=== PATIENT | male | born 1970 | race Hispanic/Latino ===

== ENCOUNTER 2019-03-13 00:19 | Emergency (ER) | payer BC, MEDICAID ==
[2019-03-13] MEDS ORDERED: MORPHINE 4 MG/1 ML INJ IV ONE (01:58)
--- NOTE | 2019-03-13 02:07 | Emergency Department Report ---
HPI - General Chief Complaint: Abdominal Pain Time Seen by Provider: 03/13/19 01:46 - HPI HPI: 48-year-old male presents to the emergency department with a complaint of left flank pain, nausea, hematuria, and increased urinary frequency and urgen cy. The patient has a known history of kidney stones. He says that he has been dealing with a left-sided kidney stone for the past 6 months. He says that it will go down, causing blockage, and then go back up into the kidneys. His symptoms started on Wednesday, 2 days ago, and have been going on since. He also has a past medical history of CHF, COPD, diabetes, sleep apnea, coronary artery disease and chronic back pain. When the symptoms intensified this afternoon, the patient contacted his urologist Dr. Cespedes, and they were told to come to [facility] for further evaluation. ED Past Medical Hx - Past Medical History Previous Medical History?: Yes Hx Congestive Heart Failure: Yes Hx Diabetes: Yes Hx Kidney Stones: Yes Hx Asthma: Yes Hx COPD: Yes Additional medical history: Sleep Apnea, CAD, Chronic Back Pain, Lung disease, Morbid Obesity. - Surgical History Past Surgical History?: Yes Hx Coronary Stent: Yes Additional Surgical History: Bilateral ankle. - Social History Smoking Status: Never Smoker Substance Use Type: None - Medications Home Medications: Home Medications Medication Instructions Recorded Confirmed Last Taken Type Ciprofloxacin HCl [Ciprofloxacin 500 mg PO Q12HR #10 tab 03/13/19 Unknown Rx TAB] Metoclopramide [Reglan] 10 mg PO TID PRN #20 tab 03/13/19 Unknown Rx ED Review of Systems ROS: Stated complaint: KIDNEY BLOCK,NAUSEA, PAIN Other details as noted in HPI Comment: All other systems reviewed and negative Constitutional: denies: chills, fever Eyes: denies: eye pain, vision change ENT: denies: ear pain, throat pain Respiratory: denies: cough, shortness of breath Cardiovascular: denies: chest pain, palpitations Gastrointestinal: abdominal pain, nausea Genitourinary: urgency, frequency, hematuria Musculoskeletal: back pain. denies: arthralgia Skin: denies: rash, lesions Neurological: denies: headache, weakness Physical Exam - Physical Exam Vital Signs: Vital Signs 03/13/19 00:32 Temperature 98.8 F Pulse Rate 109 H Respiratory 18 Rate Blood Pressure 194/121 O2 Sat by Pulse 96 Oximetry Physical Exam: GENERAL: The patient is well-developed well-nourished. HENT: Normocephalic. Atraumatic. Patient has moist mucous membranes. EYES: Extraocular motions are intact. NECK: Supple. Trachea is midline. CHEST/LUNGS: Clear to auscultation. There is no respiratory distress noted. HEART/CARDIOVASCULAR: Regular. There is mild tachycardia. There is no murmur. ABDOMEN: Abdomen is soft. Unable to reproduce the left-sided abdominal pain or flank pain to palpation. No guarding. Patient has normal bowel sounds. Obese habitus. SKIN: Skin is warm and dry. NEURO: The patient is awake, alert, and oriented. The patient is cooperative. The patient has no focal neurologic deficits. Normal speech. MUSCULOSKELETAL: There is no tenderness or deformity. There is no limitation range of motion. There is no evidence of acute injury. ED Course Vital Signs 03/13/19 00:32 Temperature 98.8 F Pulse Rate 109 H Respiratory 18 Rate Blood Pressure 194/121 O2 Sat by Pulse 96 Oximetry - Consultations Consultation #1: 03/13/19 05:11 I spoke to the patient's urologist, Dr. Oliva, regarding the patient's ED course and the CT findings of obstructing 4 mm stone with mild to moderate hydronephrosis and perinephric stranding. Given the size of the stone and its position in the distal ureter, Dr. Oliva felt that the patient may be able to be discharged home with outpatient follow-up. He recommended antibiotics and pain control and will see the patient in the office in a few days. ED Medical Decision Making - Lab Data Result diagrams: 03/13/19 01:08 03/13/19 01:08 - Radiology Data Radiology results: report reviewed CT ABDOMEN AND PELVIS WITHOUT CONTRAST INDICATION: Left flank pain. History of kidney stones. TECHNICAL: Multiple axial CT images of the abdomen and pelvis were acquired without intravenous contrast. Sagittal and coronal reformats were obtained. All CTs at this facility utilize dose reduction techniques including automated exposure control, iterative reconstruction and weight based dosing when appropriate to reduce patient radiation dose to as low as reasonable achievable. COMPARISON: None FINDINGS: Limited imaging of the bilateral lung bases demonstrates no acute abnormality. Abdomen: There is moderately decreased attenuation of the hepatic parenchyma. Within the limitations of today's noncontrast study, the gallbladder, spleen, pancreas, bilateral adrenal glands and right kidney show no evidence of acute abnormality. There is mild to moderate left-sided hydronephrosis and perinephric stranding. There is mild left hydroureter. There is no evidence of bowel obstruction. Pelvis: There is an obstructing 4 mm stone in the distal left ureter. The urinary bladder appears normal. There is no free fluid within the pelvis. Bones and Soft Tissues: Evaluation of bony structures demonstrates previous posterior surgical stabilization of the lumbosacral spine. IMPRESSION: 1. Obstructing 4 mm stone within the distal left ureter causing mild to moderate hydronephrosis and perinephric stranding. 2. Probable mild hepatic steatosis. - Medical Decision Making This patient presents with some left-sided abdominal and flank pain, hematuria, nausea without vomiting and a history of nephrolithiasis. Patient's labs were mostly unremarkable. There was some mild hyperglycemia without signs of diabetic ketoacidosis. Urinalysis does show hematuria without signs of a urinary tract infection. Patient has a leukocytosis of 17,000. CT scan of the abdomen and pelvis without contrast was completed that shows a 4 mm obstructing distal left ureter stone with [id number] hydronephrosis and perinephric stranding. His vital signs stable throughout his ED course including being afebrile. The patient was given multiple doses of pain medication and antiemetics with some improvement. I spoke with the patient's urologist who has recommended outpatient follow-up. Patient was given a dose of Flomax and antibiotics here as well. He has narcotic pain medication and Flomax at home to take and has received a prescription for some antibiotics. He has been instructed to follow up with urology in the next few days and to return to the emergency Department with any worsening of his symptoms or any acute distress. - Differential Diagnosis nephrolithiasis, pyelonephritis, UTI, colitis Critical Care Time: No Critical care attestation.: If time is entered above; I have spent that time in minutes in the direct care of this critically ill patient, excluding procedure time. ED Disposition Clinical Impression: Flank pain, Nephrolithiasis Hematuria Qualifiers: Hematuria type: unspecified type Qualified Code(s): R31.9 - Hematuria, unspecified Disposition: DC-01 TO HOME OR SELFCARE Is pt being admited?: No Condition: Stable Instructions: Kidney Stones (ED), How to Strain Your Urine (ED), Flank Pain (ED) Additional Instructions: Please follow-up with Dr. Oliva in the next few days. Take your Flomax and pain medication. Take the antibiotics as prescribed. Return to the emergency Department with any worsening of your symptoms or any acute distress. Prescriptions: Ciprofloxacin HCl [Ciprofloxacin TAB] 500 mg PO Q12HR #10 tab Metoclopramide [Reglan] 10 mg PO TID PRN #20 tab PRN Reason: Nausea Referrals: HILARY OLIVA MD [Staff Physician] - 2-3 Days Time of Disposition: 04:46
[2019-03-13 02:11] LABS: Basophils # (Auto) 0.1 K/mm3 (0.0-0.1); Basophils % (Auto) 0.4 % (0.0-1.8); Eosinophils # (Auto) 0.1 K/mm3 (0.0-0.4); Eosinophils % (Auto) 0.8 % (0.0-4.3); Hematocrit 41.4 % (35.5-45.6); Hemoglobin 13.6 gm/dl (11.8-15.2); Lymphocytes # (Auto) 1.8 K/mm3 (1.2-5.4); Lymphocytes % (Auto) 10.7 % (13.4-35.0); Mean Corpuscular HGB Conc 33 % (32-34); Mean Corpuscular Volume 88 fl (84-94); Monocytes # (Auto) 1.5 K/mm3 (0.0-0.8); Monocytes % (Auto) 8.7 % (0.0-7.3); Platelet Count 298 K/mm3 (140-440); Red Blood Count 4.72 M/mm3 (3.65-5.03)
[2019-03-13 02:21] LABS: Bilirubin,Urine NEG (Negative); Blood,Urine LG (Negative); Color,Urine Yellow (Yellow); Mucus,Urine 1+ /HPF; Protein,Urine <15 mg/dL mg/dL (Negative); Urobilinogen,Urine < 2.0 mg/dL (<2.0)
[2019-03-13 02:29] LABS: Alanine Aminotransferase 50 units/L (7-56); Albumin 4.1 g/dL (3.9-5); BUN/Creatinine Ratio 25; Blood Urea Nitrogen 20 mg/dL (9-20); Calcium 9.5 mg/dL (8.4-10.2); Hemolysis Index 74
--- NOTE | 2019-03-13 03:17 | Cat Scan Report ---
CT ABDOMEN AND PELVIS WITHOUT CONTRAST INDICATION: Left flank pain. History of kidney stones. TECHNICAL: Multiple axial CT images of the abdomen and pelvis were acquired without intravenous contr ast. Sagittal and coronal reformats were obtained. All CTs at this facility utilize dose reduction techniques including automated exposure control, iterative reconstruction and weight based dosing whe n appropriate to reduce patient radiation dose to as low as reasonable achievable. COMPARISON: None FINDINGS: Limited imaging of the bilateral lung bases demonstrates no acute abnormality. Abdomen: There is moderately decreased attenuation of the hepatic parenchyma. Within the limitations of today's noncontrast study, the gallbladder, spleen, pancreas, bilateral adrenal glands and right k idney show no evidence of acute abnormality. There is mild to moderate left-sided hydronephrosis and perinephric stranding. There is mild left hydroureter. There is no evidence of bowel obstruction. Pelvis: There is an obstructing 4 mm stone in the distal left ureter. The urinary bladder appears nor mal. There is no free fluid within the pelvis. Bones and Soft Tissues: Evaluation of bony structures demonstrates previous posterior surgical stabi lization of the lumbosacral spine. IMPRESSION: 1. Obstructing 4 mm stone within the distal left ureter causing mild to moderate hydronephrosis and p erinephric stranding. 2. Probable mild hepatic steatosis. Signer Name: Connie Kramer MD Signed: 03/13/2019 3:13 AM Workstation Name: [id number]
[2019-03-13] MEDS ORDERED: HYDROmorphone 1 MG/1 ML INJ IV ONE (03:25)
[2019-03-13] MEDS ORDERED: METOCLOPRAMIDE 10 MG/2 ML INJ IV ONE (03:25)
[2019-03-13] MEDS ORDERED: TAMSULOSIN 0.4 MG CAP PO ONE (03:39)
[2019-03-13 05:50] VITALS: BP 130/90
== END 2019-03-13 05:50 | disposition home or self-care (01) ==
LOC: ED 00:19
DX: N20.0 Calculus of kidney (principal); R10.9 Unspecified abdominal pain; R31.9 Hematuria, unspecified; I50.9 Heart failure, unspecified; E11.9 Type 2 diabetes mellitus without complications; J44.9 Chronic obstructive pulmonary disease, unspecified; G47.30 Sleep apnea, unspecified; I25.10 Atherosclerotic heart disease of native coronary artery without angina pectoris; J45.909 Unspecified asthma, uncomplicated; Z98.890 Other specified postprocedural states; Z79.899 Other long term (current) drug therapy
CPT/HCPCS: 36415; 74176; 80053; 81001; 83690; 85025; 96365; 96375; 99284; J1170; J1956; J2270; J2765